=== PATIENT | male | born 1970 | race Caucasian/White ===

== ENCOUNTER 2019-09-20 06:30 | Day surgery (SDC) | payer MEDICAID ==
[~2019-09-20] VITALS: Ht 177.8 cm; Wt 86.2 kg
[2019-09-20 06:40] VITALS: BP 132/83
[2019-09-20 09:13] VITALS: BP 117/71
== END 2019-09-20 09:55 | disposition home or self-care (01) ==
LOC: GI 06:30 → OR 08:30 → GI 08:30
DX: Z12.11 Encounter for screening for malignant neoplasm of colon (principal); Z86.010 Personal history of colon polyps; Z79.899 Other long term (current) drug therapy; Z98.890 Other specified postprocedural states
CPT/HCPCS: 45378; J1200; J1610; J2250; J2310; J3010; J3490